=== PATIENT | female | born 1985 | race Caucasian/White ===

== ENCOUNTER 2017-10-18 08:40 | Day surgery (SDC) | payer OTHER ==
[2017-10-16 12:46] LABS: ABSOLUTE BASOPHILS # (AUTO) 0.1 10^3/uL (0.0-0.2); ABSOLUTE EOSINOPHILS # (AUTO) 0.6 10^3/uL (0.0-0.6); ABSOLUTE LYMPHOCYTES (AUTO) 2.7 10^3/uL (0.5-4.7); ABSOLUTE MONOCYTES (AUTO) 0.8 10^3/uL (0.1-1.4); BASOPHILS % (AUTO) 0.5 % (0-2); EOSINOPHILS % (AUTO) 4.3 % (0-6); HEMATOCRIT 39.5 % (36.0-47.0); HEMOGLOBIN 13.2 g/dL (12.0-15.5); LYMPHOCYTES % (AUTO) 20.8 % (13-45); MEAN CORPUSCULAR HEMOGLOBIN 29.7 pg (27.0-33.4); MEAN CORPUSCULAR HGB CONC 33.4 g/dL (32.0-36.0); MEAN CORPUSCULAR VOLUME 89 fl (80-97); MONOCYTES % (AUTO) 6.2 % (3-13); PLATELET COUNT 336 10^3/uL (150-450); RED BLOOD COUNT 4.44 10^6/uL (3.72-5.28); RED CELL DISTRIBUTION WIDTH 12.7 % (11.5-14.0); SEGMENTED NEUTROPHILS % (AUTO) 68.2 % (42-78); TOTAL CELLS COUNTED % (AUTO) 100 %; WHITE BLOOD COUNT 13.2 10^3/uL (4.0-10.5)
[2017-10-16 13:00] LABS: APPEARANCE,URINE CLEAR; BILIRUBIN,URINE NEGATIVE (NEGATIVE); COLOR,URINE STRAW; GLUCOSE, URINE NEGATIVE (NEGATIVE); KETONES,URINE NEGATIVE (NEGATIVE); LEUKOCYTE ESTERASE,URINE SMALL (NEGATIVE); NITRITE,URINE NEGATIVE (NEGATIVE); PROTEIN,URINE NEGATIVE (NEGATIVE); URINE SPECIFIC GRAVITY 1.003; UROBILINOGEN,URINE NEGATIVE mg/dL (<2.0)
[2017-10-16 13:05] LABS: ANION GAP 11 (5-19); BLOOD UREA NITROGEN 8 mg/dL (7-20); CALCIUM 10.6 mg/dL (8.4-10.2); CARBON DIOXIDE 30 mmol/L (22-30); CHLORIDE 104 mmol/L (98-107); GLUCOSE 75 mg/dL (75-110); POTASSIUM 4.4 mmol/L (3.6-5.0); SODIUM 145.3 mmol/L (137-145)
--- NOTE | 2017-10-16 13:06 | EKG REPORT ---
SEVERITY:- NORMAL ECG - SINUS RHYTHM : Confirmed by: Celestine Jernigan MD 16-Oct-2017 13:06:15
[~2017-10-18 08:40] MED LIST: CEFAZOLIN 2 GM/D5W RTU 2 GM/50 ML RTUPB IV PRN; FENTANYL CITRATE INJ/PF 100 MCG/2 ML AMPUL ONE; LACTATED RINGERS 1000 ML IV PRN; LIDOCAINE 0.5% INJ-PF (5 MG/ML) 50 ML SDV SUBCUT PRN; LIDOCAINE 2% INJ-PF (20 MG/ML) 10 ML AMPUL ONE; MIDAZOLAM 2 MG/2 ML INJ ONE; ONDANSETRON HCL INJ/PF 4 MG/2 ML SDV ONE; PROPOFOL INJ 200 MG/20 ML VIAL IV ONE
[2017-10-18] MEDS ORDERED: FAMOTIDINE INJ/PF 20 MG/2 ML SDV IV ONE (10:06)
[2017-10-18] MEDS ORDERED: SCOPOLAMINE HYDROBROMIDE 1.5 MG PATCH.TD72 ONE (10:08)
[2017-10-18] MEDS ORDERED: EPINEPHRINE INJ/PF 1 MG/1 ML AMPULE ONE (10:55)
[2017-10-18] MEDS ORDERED: OXYCODONE-ACETAMINOPHEN 5-325 MG TABLET PO PRN ×4 (12:28→13:18)
[2017-10-18] MEDS ORDERED: FENTANYL CITRATE INJ/PF 100 MCG/2 ML AMPUL IV PRN ×3 (12:28)
[2017-10-18] MEDS ORDERED: MORPHINE SULFATE 10 MG/ML INJ IV PRN (12:28)
[2017-10-18] MEDS ORDERED: MEPERIDINE HCL/PF INJ 25 MG/1 ML DISP.SYRIN IV PRN (12:28)
[2017-10-18] MEDS ORDERED: DIPHENHYDRAMINE HCL 50 MG/ML VIAL IV PRN (12:28)
[2017-10-18] MEDS ORDERED: PROMETHAZINE HCL INJ 25 MG/1 ML VIAL IV PRN ×2 (12:28)
[2017-10-18] MEDS: FENTANYL CITRATE INJ/PF 100 MCG/2 ML AMPUL ONE ×2 (12:40→12:45)
[2017-10-18] MEDS ORDERED: ACETAMINOPHEN 100 ML IV ONE (12:42)
[2017-10-18] MEDS: HYDROMORPHONE HCL INJ/PF 2 MG/ML AMPULE ONE ×6 (13:05→13:55)
--- NOTE | 2017-10-18 13:05 | Operative Report ---
Operative Report DATE OF SURGERY: 10/18/17 PREOPERATIVE DIAGNOSIS: Right hip labral fraying, internal snapping hip syndrome , femoral acetabular impingement POSTOPERATIVE DIAGNOSIS: Same OPERATION: Right hip arthroscopic labral debridement, fractional lengthening of iliopsoas tendon, femoroplasty SURGEON: CHANI MEYER ANESTHESIA: GA TISSUE REMOVED OR ALTERED: none COMPLICATIONS: none ESTIMATED BLOOD LOSS: 10mL INTRAOPERATIVE FINDINGS: as above PROCEDURE: Patient was brought to the operating room. The patient was induced and intubated in supine position. IV antibiotics were given prior to entering the OR. Boots were placed on both lower extremities. Peroneal post was applied and the patient was brought down to the perineal post. Both extremities were securing and the hip distraction system. At this point traction was placed in both lower extremities. C-arm was used to guide us and allow us to dislocate the right hip successfully. Once sedated gross traction and then gentle traction and confirm a dislocation under C-arm I started the time her the right lower extremity was taken off of gross traction. This point the right hip was prepped and draped in a normal sterile surgical fashion. Timeout was done identifying the left hip as the correct site. With the use of C-arm I placed a spinal needle and the anticipated anterolateral portal site. Once I felt that I piercing the capsule, I inflated the capsule with air using a 60 mL sterile syringe, this was showing proper placement intra-articularly. I this point I placed a nitinol wire and removed the spinal needle. I proceeded to dilate appropriately after using a scalpel to do a incision establish a my portal site. Camera then was introduced and under direct visualization proceeded to use a spinal needle to status my anterior portal site. I marked the ASIS and the midline in the midportion of the thigh to make sure that we were on the lateral aspect of the spine to avoid any neurovascular structures. Once directly visualize a spinal needle and proceeded to use the same technique of placing nitinol wire, removed the needle and then proceeded to dilate the capsule after establishing the portal site with a scalpel. At this point I proceeded to do my arthrotomy using a retractable [place] blade. I proceeded to use switching sticks to changed my camera to the anterior portal and allowing to do complete my arthrotomy from the anterolateral portal using the retractable [place] blade. At this point once the arthrotomy was completed I proceeded to do my diagnostic arthroscopy. Immediately I was able to visualize the 2 anchor repair that the patient had. This was intact. Patient has some fraying of the labrum adjacent to it. I proceeded to use radiofrequency ablator and shaver to resect it. I visualize anteriorly the iliopsoas tendon and released it with the retractable [place] blade. At this point once I completed the release of the tendinous portion of the iliopsoas tendon I then proceeded to remove the traction leading to head reduced into the socket. I then used a 5.5 oval bur and did a more complete femoral plasty and went deeper as well. Pre-and post pictures were taken showing the amount of resection. Attempted to close the capsule but because it was a revision hip scope procedure unable to place a couple stitches using her equipment. At this point we proceeded then to just let it heal without any capsular repair. We proceeded to close the 2 portal sites again with 3-0 nylon and then overwrapped it with 4 x 4 dressing, ABD pad, Medipore tape. Patient was undraped and then extubated and sent to PACU in a stable condition.
--- NOTE | 2017-10-18 13:07 | PDOC DISCHARGE SUMMARY ---
Discharge Summary (SDC) - Discharge Final Diagnosis: Status post right hip arthroscopic labral debridement, fractional lengthening of iliopsoas tendon, femoroplasty Date of Surgery: 10/18/17 Discharge Date: 10/18/17 Condition: Good Treatment or Instructions: Patient instructed to follow up in 10-14 days. Patient instructed to keep dressing dry clean and intact for 4 days and then allowed to remove. At that point patient can shower and apply Band-Aids as needed. Patient can do range of motion as tolerated. Avoid external rotation of the operative hip. Nonweightbearing with crutches 6 weeks Patient instructed to call the office if patient develops fevers chills redness and drainage from the surgical sites. Prescriptions: Oxycodone HCl/Acetaminophen [Percocet 5-325 mg Tablet] 1 - 2 tab PO ASDIR PRN # 60 tablet PRN Reason: Discharge Diet: As Tolerated Respiratory Treatments at Home: Deep Breathing/Coughing Discharge Activity: No Driving, Keep Legs Elevated, No Lifting/Push/Pulling, Slowly Increase Activity Home Care Assistance: None Needed Adaptive Devices on Discharge: Axillary Crutches Report the Following to Your Physician Immediately: Shortness of Breath, Nausea , Vomiting, Fever over 101 Degrees, Unusual Bleeding, Redness, Swelling, Warmth , Increased Soreness, Drainage-Yellow, Drainage-[place], Drainage-Green
[2017-10-18] MEDS ORDERED: NEOSTIGMINE METHYLSULFATE 10 MG/10 ML VIAL ONE (14:34)
[2017-10-18] MEDS ORDERED: GLYCOPYRROLATE INJ 0.4 MG/2 ML VIAL ONE (14:34)
[2017-10-18] MEDS ORDERED: ROCURONIUM BROMIDE INJ 50 MG/5 ML VIAL IV ONE (14:34)
[2017-10-18] MEDS ORDERED: PHENYLEPHRINE HCL INJ/PF 10 MG/1 ML SDV ONE (14:34)
[2017-10-18] MEDS ORDERED: ONDANSETRON 4 MG TAB.RAPDIS ONE (15:14)
[2017-10-18] MEDS ORDERED: METOCLOPRAMIDE HCL INJ/PF 10 MG/2 ML SDV ONE (15:16)
--- NOTE | 2017-10-18 15:47 | RADIOLOGY REPORT (SQ) ---
EXAM DESCRIPTION: NO CHG FLUORO; HIP RIGHT AP/LATERAL COMPLETED DATE/TIME: 10/18/2017 2:47 pm REASON FOR STUDY: RT HIP ARTHROSCOPY ASSISTED WITH FLUORO IN OR M24.851 OTH SPECIFIC JOINT DERANGEM ENTS OF RIGHT HIP, NEC M25.851 OTHER SPECIFIED JOINT DISORDERS, RIGHT HIP COMPARISON: None. FLUOROSCOPY TIME: 0.4 minutes 4 images saved to PACS. TECHNIQUE: Intra-operative images acquired during surgical procedure to evaluate progress. NUMBER OF IMAGES: 4 LIMITATIONS: None. FINDINGS: Intraoperative imaging. Anatomic reduction on the last image. IMPRESSION: IMAGE(S) OBTAINED DURING PROCEDURE. COMMENT: Quality ID [id number]: Final reports for procedures using fluoroscopy that document radiation exp osure indices, or exposure time and number of fluorographic images (if radiation exposure indices are not available) Please consult full operative report of the attending physician for description of the procedure. TECHNICAL DOCUMENTATION: JOB ID: [id number] [employer]- All Rights Reserved
[2017-10-18 16:15] VITALS: BP 102/56
== END 2017-10-18 15:30 | disposition home or self-care (01) ==
LOC: OROUT 08:40
PROVIDERS: ATTEND Orthopaedic Surgery
PROC: 0L8J4ZZ Division of Right Hip Tendon, Percutaneous Endoscopic Approach (ICD-10-PCS; 2017-10-18)
PROC: 0SQC4ZZ Repair Right Knee Joint, Percutaneous Endoscopic Approach (ICD-10-PCS; 2017-10-18)
PROC: 0SQ94ZZ Repair Right Hip Joint, Percutaneous Endoscopic Approach (ICD-10-PCS; principal; 2017-10-18 10:45)
DX: M24.851 Other specific joint derangements of right hip, not elsewhere classified (principal); M25.851 Other specified joint disorders, right hip; M25.551 Pain in right hip
CPT/HCPCS: 29916; 27299; 29914; 93005; 36415; 85025; 81025; 80048; 81001; 73502; 93010; J2250; J3490 ×2; J0171; S0119; J3010; J2765; J1170; J2370; J2405; J2704; S0028; J0690; J0131; 01202